=== PATIENT | female | born 1970 | race Caucasian/White ===

== ENCOUNTER 2017-02-14 00:50 | Emergency (ER) | payer MEDICAID ==
[~2017-02-14] VITALS: Ht 160 cm; Wt 60.0 kg
[2017-02-14] MEDS ORDERED: ZIPRASIDONE MESYLATE 20MG/VIAL IM ONE (03:15)
[2017-02-14] MEDS ORDERED: DIPHENHYDRAMINE 50MG/ML VIAL IM PRN (03:15)
[2017-02-14 04:36] LABS: BASOPHILS % 1.1 % (0.0-2.0); EOSINOPHILS % 1.5 % (0.0-5.0); HEMATOCRIT. 30.8 % (36.0-48.0); HEMOGLOBIN. 9.6 g/dL (12.0-16.0); LYMPHOCYTES % 44.8 % (20.0-50.0); MEAN CORPUSCULAR HEMOGLOBIN 22.6 pg (28.0-32.0); MEAN CORPUSCULAR VOLUME 72.7 fL (81.0-99.0); MEAN PLATELET VOLUME 7.1 fl (7.4-10.4); MONOCYTES % 7.9 % (2.0-8.0); NEUTROPHILS % 44.7 % (40.0-76.0); PLATELET 503 x1000/uL (130-400); RED BLOOD CELL COUNT 4.24 mill/uL (4.2-5.4); RED CELL DISTRIBUTION WIDTH 17.7 % (11.6-14.6)
[2017-02-14 04:56] LABS: *BARBITURATES SCREEN URINE NEGATIVE (NEGATIVE); *BENZODIAZEPINES SCREEN URINE NEGATIVE (NEGATIVE); CANNABINOID URINE SCREEN NEGATIVE (NEGATIVE); METHADONE URINE SCREEN NEGATIVE (NEGATIVE); OPIATES URINE SCREEN NEGATIVE (NEGATIVE); PHENCYCLIDINE URINE SCREEN NEGATIVE (NEGATIVE)
[2017-02-14 04:58] LABS: CHLORIDE 107 mEq/L (98-107); ETHANOL BLOOD 40 mg/dL
[2017-02-14 05:02] LABS: *AMPHETAMINES SCREEN URINE PRESUMTIVE POSITIVE (NEGATIVE); *COCAINE SCREEN URINE PRESUMTIVE POSITIVE (NEGATIVE)
[2017-02-14 12:00] VITALS: BP 118/85
== END 2017-02-14 12:27 | disposition home or self-care (01) ==
LOC: ER 00:50
DX: F14.159 Cocaine abuse with cocaine-induced psychotic disorder, unspecified (principal); F15.959 Other stimulant use, unspecified with stimulant-induced psychotic disorder, unspecified
CPT/HCPCS: 36415; 80048; 80305; 80307; 80329; 82962; 85025; 96372; 99284; G0482; J1200; J3486